=== PATIENT | male | born 1980 | race Caucasian/White ===

== ENCOUNTER 2024-04-08 09:24 | Emergency (ER) | payer BC, SELFPAY ==
[2024-04-08 09:26] VITALS: BP 180/120
--- NOTE | 2024-04-08 11:06 | ED.GENMED ---
History of Present Illness
General
Chief Complaint: Dizziness
Source: patient
Time Seen by Provider: 04/08/24 10:45
History of Present Illness
History of Present Illness:
44-year-old male with past medical history of hypertension presenting to the ER for evaluation of what he describes to be a dizziness sensation that started constantly 2 days ago, the same today but not improving after he went to urgent care last
night and was given a prescription for meclizine which he states he took last night and this morning with no relief. Patient describes a sensation of feeling 'drained to close', noted his blood pressure was elevated at urgent care last night and
remains that way this morning despite taking his valsartan as prescribed. Patient states that his dizziness sensation is as if when he looks at the wall the wall is shifting and moving and he cannot get this sensation., Does not seem to worsen
with movement, denies any history of similar. He does note associated generalized headache but no blurred vision/double vision, chest pain, shortness of breath, fevers or flulike illness or any other concerns. Family history was noted for maternal
grandfather and great grandfather both having CVAs. Patient denies tobacco use but does state uses marijuana almost daily.
Past History
Past History
ED Past Medical History: HTN
ED Past Surgical History: Orthopedic
Social History
Tobacco: Non-smoker
Alcohol: None
Drug: Marijuana
Personal:
Living: with family
Review of Systems
Review of Systems
All Other Systems: ROS reviewed and negative except as documented in HPI and ROS
Phy Exam
Physical Exam
Physical Exam:
GENERAL: Alert , in no apparent distress but appears unwell
HEAD: Normocephalic atraumatic
EYE: clear conjunctiva
NECK: Supple
ENT: o/p clr, mmm.
CARDIAC: Regular rate and rhythm, no murmur .
LUNGS: Clear breath sounds bilaterally, no acute respiratory distress, no wheezes/rales/rhonchi
NEUROLOGICAL: Alert and oriented, no focal neuro deficits, moves all extremities, no dysmetria, no dysarthria, no aphasia, sensation grossly intact to light touch throughout
SKIN: Warm and dry, skin intact.
MUSCULOSKELETAL: No edema, well perfused.
PSYCH: Normal and appropriate interaction.
Scores
Heart Failure Risk
Heart Failure Risk Score: Not Applicable
Heart Score for Chest Pain Patients
STEMI patient?: Not applicable
Withdrawal Assessment of Alcohol
Withdrawal Assessment Completed?: Not applicable
Course
Orders/Labs/Results
Orders:
Orders
04/08/24 11:04
Electrocardiogram (*1) Urgent
Reason for Study: Hypertension, Benign
CT Head W/o Iv Contrast Urgent
Comment:
Reason For Exam: dizziness, HTN
EKG- Treatment ONCE
Labetalol HCl [Trandate] 10 mg IV NOW STA
04/08/24 11:45
Basic Metabolic Panel Urgent
Complete Blood Count/With Diff Urgent
Troponin I Urgent
04/08/24 12:34
MethylPREDNISolone PF [Solu-Medrol Pf] 125 mg IV NOW STA
Abnormal Lab Results
04/08/24
11:45
WBC 11.4 H 10^3/uL
(4.8-10.8)
MCH 31.6 H pg
(27.0-31.0)
Absolute Neuts (auto) 9.6 H 10^3/uL
(1.4-6.5)
Neutrophils % 84.9 H %
(42.2-75.2)
Lymphocytes % 11.1 L %
(20.5-51.1)
BUN 21 H mg/dl
(9-20)
Glucose 126 H mg/dl
(70-99)
04/08/24 11:45
04/08/24 11:45
Vital Signs
Initial and Last Documented VS:
Initial Vital Signs
Temp Pulse Resp BP Pulse Ox
97.5 F 104 16 180/120 98
04/08/24 09:26 04/08/24 09:26 04/08/24 09:26 04/08/24 09:26 04/08/24 09:26
Last Documented Vital Signs
Temp Pulse Resp BP Pulse Ox
97.5 F 75 20 181/119 98
04/08/24 09:26 04/08/24 13:00 04/08/24 13:04/08/24 13:00 04/08/24 09:26
MDM/Problems Addressed
Differential Diagnosis Includes:
Hypertensive urgency/emergency, hypertensive encephalopathy, posterior CVA, BPPV, labyrinthitis, M�ni�re's
MDM/Problems Addressed:
44-year-old male presenting to the ER for evaluation of constant dizziness over the last 2 days, went to urgent care and was given a prescription for meclizine but has not had any improvement despite 3 total doses of this. Noted to be significantly
hypertensive on arrival with a blood pressure 180/120. No focal neurologic findings on exam and patient is without any ataxia. Labs, EKG and CT of the head ordered. Will consult with neurology. Disposition pending.
*Radiology
Radiology exam reviewed: radiology read reviewed
*Pulse Oximetry
Patient hypoxic: no
*Critical Care Note
Total Time (30-74mins, 75-104mins- exclusive of procedures): Not Applicable
Patient Management
Social determinants of health affecting care: Living situation and Strong social support
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
Escalation/DeEscalation of care consider admission/obs:
Notified neurology who came to the ER to evaluate patient and based off of their exam feel confident that patient's symptoms are likely related to labyrinthitis as he has a constant nystagmus when looking rightward, somewhat slows when looking
leftward. Patient's blood pressure still noted to be elevated so I contacted his primary care provider and was able to make him a follow-up for this coming Monday at 3 PM. Based off neurology recommendations will give a high dose of Solu-Medrol IV
here and additional 4 days of 50 mg prednisone p.o. Patient will continue taking his Antivert as needed as well as advised he continue to take his valsartan as prescribed. Aware of return precautions to the ER. Stable for discharge home.
ED Attending Note
-
Portions of this chart may have been created with voice recognition software.� Occasional wrong word or��sound alike� substitutions may have occurred due to the inherent limitations of voice recognition software.
Discharge Plan
Departure
Patient Disposition: Home (Routine Discharge)
Date of Disposition: 04/08/24
Time of Disposition: 12:35
Patient with high blood pressure during this ER visit?: Yes
Discharge Problem:
Acute labyrinthitis, Hypertension
Instructions: Vertigo (a Type of Dizziness) (DC)
Prescriptions:
New
prednisone 50 mg tablet
50 mg PO DAILY Qty: 4 0RF
Referrals:
Ruba Larson CRNP [Family Provider] -
Interventions
Interventions:
*Risk Screen - Suicide Last Done: 04/08/24 09:26
*General Assessment Last Done: 04/08/24 12:19
*Neglect/Abuse Screening Last Done: 04/08/24 09:26
ED- Fall Risk Assessment Last Done: 04/08/24 11:59
*ED COVID-19 Vaccine History Last Done: 04/08/24 11:39
*Nursing Disposition Last Done: 04/08/24 13:27
ED- Neurological Assessment Last Done: 04/08/24 11:59
ED- Cardiac Assessment Last Done: 04/08/24 11:59
Discharge Date and Time
Discharge Date/Time: 04/08/24 13:28
Print Language: KINYARWANDA
[2024-04-08] MEDS: TRANDATE 10 MG IV (11:50)
[2024-04-08 12:00] VITALS: BP 170/130
[2024-04-08 12:02] LABS: % Basophils 0.2 % (0-2); % Immature Granulocytes 0.4 % (0-0.5); % Lymphocytes 11.1 % (20.5-51.1); % Monocytes 3.4 % (1.7-9.3); % Neutrophils 84.9 % (42.2-75.2); Absolute Lymphocytes 1.3 10^3/uL (1.2-3.4); Absolute Monocytes 0.4 10^3/uL (0.1-0.6); Absolute Neutrophils 9.6 10^3/uL (1.4-6.5); Hematocrit 47.4 % (39.0-52.0); Hemoglobin 16.8 g/dL (13.0-18.0); Mean Corp Hgb Conc. 35.4 g/dL (33.0-37.0); Mean Corpuscular Hgb 31.6 pg (27.0-31.0); Mean Corpuscular Volume 89.1 fL (80.0-94.0); Mean Platelet Volume 9.7 fL (7.4-10.4); Nucleated Red Blood Cells % 0 % (-); Platelet Count 278 10^3/uL (130-400); Red Blood Cell Count 5.32 10^6/uL (4.70-6.10); White Blood Cell Count 11.4 10^3/uL (4.8-10.8)
[2024-04-08 12:18] LABS: Blood Urea Nitrogen 21 mg/dl (9-20); Calcium 10.2 mg/dl (8.4-10.2); Carbon Dioxide 26 mmol/L (22-30); Chloride 98 mmol/L (98-107); Glucose 126 mg/dl (70-99); Potassium 4.3 mmol/L (3.5-5.1); Sodium 138 mmol/L (135-145); eGFR > 60.00
[2024-04-08 12:30] VITALS: BP 178/134
[2024-04-08] MEDS: SOLU-MEDROL PF 125 MG IV (12:49)
[2024-04-08 13:00] VITALS: BP 181/119
[2024-04-08 13:11] LABS: Troponin I < 0.012 ng/ml
--- NOTE | 2024-04-08 13:27 | CON.NEURO ---
Neuro Assessment/Plan
Assessment
Acute vestibular neuritis left ear (constant right beating nystagmus)
significantly hypertensive without evidence of end organ damage
Plan
given 2 days of acute vestibular neuritis, he should be treated with steroids x5 days
can give Solumedrol 125 now and then prednisone 50 x4 days. ok to discharge
Consultation
Order
Date of Consultation: 04/08/24
Requesting Provider:
Reason for Consult:
Subjective/Objective
Subjective Data
Date of Service: April 08, 2024
44 year old man with vertigo x2 days. constant, persists even if he closes his eyes and stays still.
no focal weakness/numbness, no vision loss, double vision, tinnitus, or hearing changes
seen in urgent care and rx meclizine without relief.
in ED initial bp 180/120
Objective Data
Vital Signs
Temp Pulse Resp BP Pulse Ox
36.4 C 75 20 181/119 98
04/08/24 09:26 04/08/24 13:00 04/08/24 13:00 04/08/24 13:00 04/08/24 09:26
Lab Results
04/08/24 11:45
04/08/24 11:45
Sodium 138 mmol/L (135-145) 04/08/24 11:45
Potassium 4.3 mmol/L (3.5-5.1) 04/08/24 11:45
BUN 21 mg/dl (9-20) H 04/08/24 11:45
Glucose 126 mg/dl (70-99) H 04/08/24 11:45
Calcium 10.2 mg/dl (8.4-10.2) 04/08/24 11:45
Patient Allergies
No Known Allergies Allergy (Verified 04/08/24 09:29)
Physical Exam
-
AAOx3, speech clear, language intact
constant RIGHT beating nystagmus independent of gaze direction
face symmetric
full strength x4
no ataxia
Medications
-
Home Medications
�Medication �Instructions �Recorded
prednisone 50 mg tablet 50 mg PO DAILY #4 tabs 04/08/24
== END 2024-04-08 13:28 | disposition home or self-care (01) ==
LOC: EMR 09:24
PROVIDERS: Physician Assistant Medical; EMERGENCY PHYSICIAN Student in an Organized Health Care Education/Training Program; FAMILY PHYSICIAN Nurse Practitioner Adult Health; OTHER PHYSICIAN Psychiatry & Neurology Clinical Neurophysiology
DX: H83.09 Labyrinthitis, unspecified ear (principal); H55.00 Unspecified nystagmus; I10 Essential (primary) hypertension
CPT/HCPCS: 99285; 96374; 96375; 70450; 80048; 84484; 85025; 93005